=== PATIENT | male | born 1970 | race Caucasian/White ===

== ENCOUNTER 2019-06-17 08:34 | Emergency (ER) | payer BC, OTHER ==
[2019-06-17] MEDS ORDERED: Ibuprofen 800 MG Tab PO ONE (08:59)
--- NOTE | 2019-06-17 09:14 | EDM.PDOC ---
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 He has had this pain for a few months now and the pain has been intermittent. He has been taking aspirin for this pain. Denies any abdominal pain nausea vomiting or anorexia denies any fever chills. Patient denies any penile discharge or testicular pain. He denies any history of kidney stones. Patient denies any obvious traumatic injury to the back however does drive a truck for years and complains of mild wear and tear to his lower back. His main concern today is possibility of urinary tract versus kidney infection. 6 Pain Score (Numeric/FACES): 6 - Related Data Allergies Allergy/AdvReac Type Severity Reaction Status Date / Time diverset Allergy Nausea Uncoded 06/26/16 15:25 Home Meds: Home Meds Cyclobenzaprine [Flexeril] 10 mg PO TID #30 tab 06/17/19 [Rx] Ibuprofen [Motrin] 600 mg PO TID PRN #30 tab 06/17/19 [Rx] Past Medical History - Past Health History Medical/Surgical History: Denies Medical/Surgical History Hematologic History: Reports: None Oncologic (Cancer) History: Reports: None - Infectious Disease History Infectious Disease History: Reports: None - Past Surgical History GI Surgical History: Reports: Hernia, Inguinal, Hernia Repair/Other Social & Family History - Family History Family Medical History: Noncontributory - Tobacco Use Smoking Status *Q: Never Smoker Second Hand Smoke Exposure: Yes - Caffeine Use Caffeine Use: Reports: Coffee - Recreational Drug Use Recreational Drug Use: No ED ROS GENERAL - Review of Systems Review Of Systems: See Below Constitutional: Reports: No Symptoms HEENT: Reports: No Symptoms Respiratory: Reports: No Symptoms Cardiovascular: Reports: No Symptoms GI/Abdominal: Reports: No Symptoms : Reports: Flank Pain. Denies: Discharge, Dysuria, Hematuria, Urgency, Urinary Retention Musculoskeletal: Reports: Back Pain Skin: Reports: No Symptoms Psychiatric: Reports: No Symptoms Hematologic/Lymphatic: Reports: No Symptoms ED EXAM,LOWER BACK PAIN/INJURY - Physical Exam Exam: See Below Exam Limited By: No Limitations General Appearance: Alert, WD/WN, No Apparent Distress Head: Atraumatic, Normocephalic Neck: Normal Inspection, Supple, Non-Tender, Full Range of Motion Respiratory/Chest: No Respiratory Distress, Lungs Clear, Normal Breath Sounds, No Accessory Muscle Use, Chest Non-Tender Cardiovascular: Normal Peripheral Pulses, Regular Rate, Rhythm, No Edema, No Gallop, No JVD, No Murmur, No Rub GI/Abdominal: Normal Bowel Sounds, Soft, Non-Tender, No Organomegaly, No Distention, No Abnormal Bruit, No Mass Back Exam: No: CVA Tenderness (R) Extremities: Normal Inspection, Normal Range of Motion, Other (Tender bilateral lower paralumbar muscle region on palpation without deformity or spasm. Rash noted) Skin Exam: Warm, Dry, Intact, Normal Color, No Rash Lymphatic: No Adenopathy Course - Vital Signs Last Recorded V/S: Last Vital Signs Temp 96.9 F 06/17/19 08:53 Pulse 92 06/17/19 08:53 Resp 18 06/17/19 08:53 BP 129/87 06/17/19 08:53 Pulse Ox 99 06/17/19 08:53 - Orders/Labs/Meds Labs: Laboratory Tests 06/17/19 Range/Units 09:14 Urine Color YELLOW Urine Appearance CLEAR Urine pH 5.5 (5.0-8.0) Ur Specific [place] >= 1.030 (1.001-1.035) Urine Protein TRACE H (NEGATIVE) mg/dL Urine Glucose (UA) NEGATIVE (NEGATIVE) mg/dL Urine Ketones NEGATIVE (NEGATIVE) mg/dL Urine Occult Blood NEGATIVE (NEGATIVE) Urine Nitrite NEGATIVE (NEGATIVE) Urine Bilirubin NEGATIVE (NEGATIVE) Urine Urobilinogen 0.2 (<2.0) EU/dL Ur Leukocyte Esterase NEGATIVE (NEGATIVE) Urine RBC 0-1 (0-2/HPF) Urine WBC 0-1 (0-5/HPF) Ur Epithelial Cells RARE (NONE-FEW) Urine Bacteria RARE (NEGATIVE) Meds: Medications Discontinued Medications Generic Name Dose Route Start Last Admin Trade Name Freq PRN Reason Stop Dose Admin Ibuprofen 800 mg 06/17/19 08:59 06/17/19 09:05 Motrin PO 06/17/19 09:00 800 mg ONETIME ONE Administration Departure - Departure Time of Disposition: 10:10 Disposition: Home, Self-Care 01 Condition: Good Clinical Impression: Back pain Qualifiers: Back pain location: low back pain Chronicity: acute Back pain laterality: bilateral Sciatica presence: unspecified whether sciatica present Qualified Code (s): M54.5 - Low back pain - Discharge Information Instructions: Pain Medicine Instructions, [id number], Muscle Strain, Easy-to- Read Referrals: PCP,None [Primary Care Provider] - Forms: ED Department Discharge Sepsis Event Note - Evaluation Sepsis Screening Result: No Definite Risk - Focused Exam Vital Signs: Vital Signs Temp Pulse Resp BP Pulse Ox 06/17/19 08:53 96.9 F 92 18 129/87 99 Date Exam was Performed: 06/17/19 Time Exam was Performed: 10:08
--- NOTE | 2019-06-17 09:51 | CR ---
Lumbar spine: AP, lateral and coned-down lateral view centered to the lumbosacral junction were obtained. Comparison: No previous lumbar spine imaging. Slight anterior endplate osteophytes are seen within L4 and L5. Vertebral body heights and disc spaces are maintained. Pedicles are intact. Transverse and spinous processes are intact. Sacroiliac joints appear within normal limits. Impression: 1. Slight endplate osteophytes. 2. Three-view lumbar spine study is otherwise unremarkable. Diagnostic code #2 This report was dictated in [place] Standard Time
--- NOTE | 2019-06-17 09:51 | CR ---
Abdomen: Supine view of the abdomen was obtained. Scattered gas within nondilated colon and small bowel is noted. No abnormal calcifications or discrete soft tissue abnormality is seen. No discrete osseous abnormality is appreciated. Impression: 1. Nothing acute is seen on supine abdominal x-ray. Diagnostic code #1 This report was dictated in [place] Standard Time
[2019-06-17 10:41] VITALS: BP 117/83; PULSE 80
== END 2019-06-17 10:41 | disposition home or self-care (01) ==
LOC: MW.ED 08:34
DX: M54.5 Low back pain (principal); Z77.22 Contact with and (suspected) exposure to environmental tobacco smoke (acute) (chronic); Z88.8 Allergy status to other drugs, medicaments and biological substances
CPT/HCPCS: 72100; 74018; 81001; 99284; A9270; 99283